=== PATIENT | male | born 1945 | race American Indian/Alaskan Native ===

== ENCOUNTER 2017-07-24 12:47 | Emergency (ER) | payer MEDICARE ==
--- NOTE | 2017-07-24 14:31 | Emergency Department Report ---
HPI <NEREYDA DEAN - Last Filed: 07/24/17 20:16> - HPI HPI: This is a 8-year-old -[place]ian male presents to the emergency department via EMS from home with complaint of alcohol intoxication and a fall causing left shoulder pain. The patient does say that he drinks regularly and says that he "just drank way too much." Because of his level of alcohol consumption , he called EMS himself to be seen. He did not take anything for his left shoulder pain. Utilizing his head or any loss of consciousness. He denies any tobacco or illicit drug use or abuse. He also has a history of hypertension. There is also some medical history for which he takes Plavix but he denies any history of CVA or NV and therefore I do not know what the Plavix is for. Patient says that he lives alone and does not have any family to care for him or any roommates. <MADDY CARLTON - Last Filed: 07/26/17 10:20> - General Chief Complaint: Fall Time Seen by Provider: 07/24/17 14:06 ED Past Medical Hx <NEREYDA DEAN - Last Filed: 07/24/17 20:16> - Past Medical History Previous Medical History?: Yes Hx Hypertension: Yes Additional medical history: HIGH CHOLESTEROL - Surgical History Past Surgical History?: Yes Additional Surgical History: LEFT KNEE SURGERY. biopsy of heart and knee - Social History Smoking Status: Never Smoker Substance Use Type: Alcohol <MADDY CARLTON - Last Filed: 07/26/17 10:20> - Medications Home Medications: Home Medications Medication Instructions Recorded Confirmed Last Taken Type Ibuprofen [Motrin 600 MG tab] 600 mg PO Q8H PRN #40 tablet 02/08/15 Unknown Rx oxyCODONE /ACETAMINOPHEN [Percocet 1 tab PO Q6HR PRN #20 tablet 02/08/15 Unknown Rx 5/325 mg] Famotidine [Pepcid] 20 mg PO BID #30 tablet 04/18/15 Unknown Rx hydrOXYzine HCL [Atarax] 10 mg PO Q6HR #30 tablet 04/18/15 Unknown Rx ED Review of Systems ROS: Stated complaint: ETOH/FALL Other details as noted in HPI <NEREYDA DEAN - Last Filed: 07/24/17 20:16> ROS: Stated complaint: ETOH/FALL Other details as noted in HPI Comment: All other systems reviewed and negative Constitutional: denies: chills, fever Eyes: denies: eye pain, eye discharge, vision change ENT: denies: ear pain, throat pain Respiratory: denies: cough, shortness of breath, wheezing Cardiovascular: denies: chest pain, palpitations Gastrointestinal: denies: abdominal pain, nausea, diarrhea Genitourinary: denies: urgency, dysuria Musculoskeletal: arthralgia. denies: back pain Skin: denies: rash, lesions Neurological: denies: headache, numbness <MADDY CARLTON S - Last Filed: 07/26/17 10:20> Physical Exam - Physical Exam Vital Signs: Vital Signs 07/24/17 07/24/17 07/24/17 15:22 18:31 18:33 Temperature Pulse Rate 108 H Pulse Rate [ 114 H Intra-Procedure ] Pulse Rate [Pre 100 H -Procedure] Respiratory 13 Rate Respiratory 22 Rate [Intra- Procedure] Respiratory 18 Rate [Pre- Procedure] Blood Pressure 163/100 [Intra- Procedure] Blood Pressure 131/77 [Pre-Procedure] Blood Pressure [Right] O2 Sat by Pulse 98 Oximetry [ Intra-Procedure ] O2 Sat by Pulse 100 Oximetry [Pre- Procedure] 07/24/17 18:34 Temperature 98.9 F Pulse Rate 106 H Pulse Rate [ Intra-Procedure ] Pulse Rate [Pre -Procedure] Respiratory 13 Rate Respiratory Rate [Intra- Procedure] Respiratory Rate [Pre- Procedure] Blood Pressure [Intra- Procedure] Blood Pressure [Pre-Procedure] Blood Pressure 162/88 [Right] O2 Sat by Pulse Oximetry [ Intra-Procedure ] O2 Sat by Pulse Oximetry [Pre- Procedure] <NEREYDA DEAN - Last Filed: 07/24/17 20:16> - Physical Exam Physical Exam: GENERAL: The patient is well-developed well-nourished. HENT: Normocephalic. Atraumatic. Patient has moist mucous membranes. EYES: Extraocular motions are intact. Pupils equal reactive to light bilaterally. NECK: Supple. Trachea is midline. CHEST/LUNGS: Clear to auscultation. There is no respiratory distress noted. HEART/CARDIOVASCULAR: Regular. There is no tachycardia. There is no murmur. ABDOMEN: Abdomen is soft, nontender. Patient has normal bowel sounds. There is no abdominal distention. SKIN: Skin is warm and dry. NEURO: The patient appears intoxicated but is awake and oriented, able 3. The patient is cooperative. The patient has no focal neurologic deficits. Patient has some slurred speech but answers questions appropriately. MUSCULOSKELETAL: There is some tenderness palpation to the left shoulder. He holds the left upper extremity against his body and internal rotation. There is a slight deformity to the left shoulder joint concerning for dislocation. Radial pulse +2 over 4 bilaterally. Cap refill less than 2 seconds. <MADDY CARLTON - Last Filed: 07/26/17 10:20> ED Course Vital Signs 07/24/17 07/24/17 07/24/17 15:22 18:31 18:33 Temperature Pulse Rate 108 H Pulse Rate [ 114 H Intra-Procedure ] Pulse Rate [Pre 100 H -Procedure] Respiratory 13 Rate Respiratory 22 Rate [Intra- Procedure] Respiratory 18 Rate [Pre- Procedure] Blood Pressure 163/100 [Intra- Procedure] Blood Pressure 131/77 [Pre-Procedure] Blood Pressure [Right] O2 Sat by Pulse 98 Oximetry [ Intra-Procedure ] O2 Sat by Pulse 100 Oximetry [Pre- Procedure] 07/24/17 18:34 Temperature 98.9 F Pulse Rate 106 H Pulse Rate [ Intra-Procedure ] Pulse Rate [Pre -Procedure] Respiratory 13 Rate Respiratory Rate [Intra- Procedure] Respiratory Rate [Pre- Procedure] Blood Pressure [Intra- Procedure] Blood Pressure [Pre-Procedure] Blood Pressure 162/88 [Right] O2 Sat by Pulse Oximetry [ Intra-Procedure ] O2 Sat by Pulse Oximetry [Pre- Procedure] - Reevaluation(s) Reevaluation #1: 07/24/17 20:18 Care is transferred to the overnight physician, Dr. Santos, to observe patient until clinical sobriety, patient is currently trying to find a ride home, but based on expected metabolism, patient should be clinically sober and ready for discharge by 11:30 PM. However if family or friends to be contacted, and they feel safe and acceptable and okay to take patient home while intoxicated, this would be acceptable as well. <NEREYDA DEAN - Last Filed: 07/24/17 20:16> - Orthopedic Joint Reduction Joint #1 Consent Obtained: emergent situation Time Out Performed: Yes Side: left Joint Reduction Location: shoulder Analgesia: none Shoulder Technique Used (if applicable): scapula manipulation, other Post-Reduction Neuro Exam: intact Post-Reduction Vascular Exam: intact Post Reduction X-Ray Obtained: Yes Post Reduction X-Ray Results: reduced Patient Tolerated Procedure: well Additional Comments: Procedure question my colleague Dr. Whitmore to assist and left shoulder reduction. Patient received propofol for moderate sedation. Upon evaluating the patient, he was still sedated. The left scapula was rotated in the clockwise direction, and I applied lateral and superiorly directed force to the proximal humerus, with a good "clunk", and an obvious reduction in the left shoulder dislocation. Patient moving the bilateral upper extremities without difficulty afterwards, 2+ pulses noted in the bilateral upper and lower extremities, I will defer to Dr. winters management postreduction. Patient tolerated the procedure well. <NEREYDA DEAN - Last Filed: 07/24/17 20:16> - Moderate Sedation Indications: fracture/dislocation redu Preparation: monitoring and evaluation advisor applied, pulse oximeter, capnometry used, supplemental O2 applied, suction/airway equipment at bedside, IV secured Ketamine: IV Ketamine Dose: 100 IV Propofol Dose (mgs): 80 Complications: none Patient Tolerated Procedure: well Additional Comments: The ketamine was given and one attempt was made. The propofol was then given for the second and third attempts before successful reduction. <MADDY CARLTON - Last Filed: 07/26/17 10:20> ED Medical Decision Making - Lab Data Result diagrams: 07/24/17 14:22 07/24/17 14:54 <DIANNENEREYDA - Last Filed: 07/24/17 20:16> - Lab Data Result diagrams: 07/24/17 14:22 07/24/17 14:54 - Radiology Data Radiology results: report reviewed, image reviewed interpreted by me: X-ray of the left shoulder shows a inferior anterior dislocation. There were two post reduction x-rays. The first did not show any successful reduction. The second shows that the humeral head is inside of the glenohumeral joint showing successful reduction. EXAM: CT CERVICAL SPINE WO CON HISTORY: fall TECHNIQUE: CT cervical spine with reconstructions PRIORS: None. FINDINGS: Vertebral bodies demonstrate normal height and alignment. There is multilevel degenerative disc space narrowing most prominent C3-C4 C4-C5 and C5-C6. There is multilevel facet joint arthropathy present. The facet joints demonstrate normal alignment. The spinous processes are intact. Craniocervical junction is unremarkable. C1 and C2 are intact. IMPRESSION: Multilevel degenerative disc disease and facet joint arthropathy No acute traumatic abnormality identified Transcribed By: CARMEN Dictated By: CAMELIA ANDREWS MD Electronically Authenticated By: CAMELIA ANDREWS MD Signed Date/Time: 07/24/17 1309 EXAM: CT HEAD/BRAIN WO CON HISTORY: fall TECHNIQUE: CT head without contrast PRIORS: None. FINDINGS: No acute intra-axial or extra-axial hemorrhage is identified. There is no evidence of midline shift or mass effect. The ventricles and sulci are within normal limits. Huff-white matter differentiation is intact. No acute parenchymal abnormalities seen. Bony calvarium is grossly intact. Visualized portions of the mastoids and paranasal sinuses are unremarkable. IMPRESSION: Negative CT head Transcribed By: CARMEN Dictated By: CAMELIA ANDREWS MD Electronically Authenticated By: CAMELIA ANDREWS MD Signed Date/Time: 07/24/17 1302 - Medical Decision Making Patient who has a history of all dependence presents with a fall and left shoulder pain. Turns out to be a anterior inferior dislocation of the left shoulder. He got conscious sedation and a few attempts were made and eventually there was reduction of the shoulder dislocation. He had some mild hypokalemia that was replaced with potassium chloride. He received IV fluid and banana bag. He had a CT of the head and cervical spine that was negative for any acute process or injury. He was watched in the emergency department for multiple hours until he got to a sober level and then was discharged home with referrals for primary care and her orthopedist. He'll return to the ER with any worsening of symptoms or any acute distress. - Differential Diagnosis alcohol intoxication, shoulder dislocation, fracture, sprain <MADDY CARLTON - Last Filed: 07/26/17 10:20> Critical care attestation.: If time is entered above; I have spent that time in minutes in the direct care of this critically ill patient, excluding procedure time. <NEREYDA DEAN - Last Filed: 07/24/17 20:16> Critical Care Time: No Critical care attestation.: If time is entered above; I have spent that time in minutes in the direct care of this critically ill patient, excluding procedure time. <MADDY CARLTON - Last Filed: 07/26/17 10:20> ED Disposition <NEREYDA DEAN - Last Filed: 07/24/17 20:16> Is pt being admited?: No Time of Disposition: 15:55 <MADDY CARLTON - Last Filed: 07/26/17 10:20> Clinical Impression: Alcohol abuse Alcohol intoxication Qualifiers: Complication of substance-induced condition: uncomplicated Qualified Code(s): F10.920 - Alcohol use, unspecified with intoxication, uncomplicated Fall Qualifiers: Encounter type: initial encounter Qualified Code(s): W19.XXXA - Unspecified fall, initial encounter Dislocation of left shoulder joint Qualifiers: Encounter type: initial encounter Qualified Code(s): S43.005A - Unspecified dislocation of left shoulder joint, initial encounter Disposition: TO HOME OR SELFCARE Condition: Stable Instructions: Shoulder Dislocation (ED), Alcohol Intoxication (ED), Abuse of Alcohol (ED) Additional Instructions: Please try and decrease or quit you're drinking. Stay in the arm sling until follow-up with an orthopedist. I have given you a referral for a local orthopedist, Dr. Kang, to follow up regarding your shoulder pain and dislocation. Return to the emergency Department with any worsening of your symptoms or any acute distress. Referrals: NEREYDA GALICIA MD [Primary Care Provider] - 3-5 Days XAVI KANG MD [Staff Physician] - 3-[address] [facility] [Outside] - 3-5 Days
--- NOTE | 2017-07-24 14:35 | XRay Report ---
LEFT SHOULDER: History: Injury. Anterior, inferior dislocation is identified at the left glenohumeral joint. Mild osteoarthritic changes are suspected at the a.c. joint. No obvious fracture is identified. IMPRESSION: Dislocation.
[2017-07-24] MEDS ORDERED: KETALAR IV ONE (14:43)
[2017-07-24 14:50] LABS: Basophils % (Auto) 0.7 % (0.0-1.8); Eosinophils % (Auto) 0.3 % (0.0-4.3); Hematocrit 39.1 % (35.5-45.6); Hemoglobin 13.3 gm/dl (11.8-15.2); Lymphocytes # (Auto) 1.3 K/mm3 (1.2-5.4); Lymphocytes % (Auto) 21.7 % (13.4-35.0); Mean Corpuscular HGB Conc 34 % (32-34); Mean Corpuscular Hemoglobin 29 pg (28-32); Mean Corpuscular Volume 86 fl (84-94); Monocytes # (Auto) 0.3 K/mm3 (0.0-0.8); Monocytes % (Auto) 5.3 % (0.0-7.3); Platelet Count 139 K/mm3 (140-440); Red Blood Count 4.55 M/mm3 (3.65-5.03); Red Cell Distribution Width 15.8 % (13.2-15.2)
[2017-07-24] MEDS ORDERED: NACL 0.9% 1000 ML 1,000 ML IV ONE (14:59)
[2017-07-24] MEDS ORDERED: VITAMIN B-1 100 MG, FOLVITE 1 MG, INFUVITE 10 ML in NACL 0.9% 1000 ML 1,000 ML IV ONE (14:59)
[2017-07-24 15:27] LABS: Alanine Aminotransferase 57 units/L (7-56); BUN/Creatinine Ratio 22; Blood Urea Nitrogen 13 mg/dL (9-20); Calcium 8.7 mg/dL (8.4-10.2); Hemolysis Index 24
[2017-07-24] MEDS ORDERED: DIPRIVAN 10 MG/ML IV ONE ×3 (15:29→15:44)
[2017-07-24] MEDS ORDERED: K-DUR PO ONE (16:00)
--- NOTE | 2017-07-24 17:05 | Cat Scan Report ---
FINAL REPORT EXAM: CT HEAD/BRAIN WO CON HISTORY: fall TECHNIQUE: CT head without contrast PRIORS: None. FINDINGS: No acute intra-axial or extra-axial hemorrhage is identified. There is no evidence of midline shift or mass effect. The ventricles and sulci are within normal limits. Huff-white matter differentiation is intact. No acute parenchymal abnormalities seen. Bony calvarium is grossly intact. Visualized portions of the mastoids and paranasal sinuses are unremarkable. IMPRESSION: Negative CT head
--- NOTE | 2017-07-24 17:12 | Cat Scan Report ---
FINAL REPORT EXAM: CT CERVICAL SPINE WO CON HISTORY: fall TECHNIQUE: CT cervical spine with reconstructions PRIORS: None. FINDINGS: Vertebral bodies demonstrate normal height and alignment. There is multilevel degenerative disc space narrowing most prominent C3-C4 C4-C5 and C5-C6. There is multilevel facet joint arthropathy present. The facet joints demonstrate normal alignment. The spinous processes are intact. Craniocervical junction is unremarkable. C1 and C2 are intact. IMPRESSION: Multilevel degenerative disc disease and facet joint arthropathy No acute traumatic abnormality identified
--- NOTE | 2017-07-24 17:27 | XRay Report ---
FINAL REPORT EXAM: XR SHOULDER 1V LT HISTORY: post reduction TECHNIQUE: Single AP view of the shoulder PRIORS: Correlated with today's earlier exam FINDINGS: There is been complete reduction the previously described shoulder dislocation Noted are degenerative changes with narrowing of the subacromial joint space mild hypertrophic bony change with inferior acromial osteophyte. Findings likely reflect underlying rotator cuff pathology IMPRESSION: Complete reduction of anterior dislocation Findings suggestive of rotator cuff pathology
[2017-07-24] MEDS ORDERED: MAGNESIUM SULFATE 2GM/50ML 2 GM/50 ML BAG IV ONE (18:59)
[2017-07-24 21:16] VITALS: BP 156/84
--- NOTE | 2017-07-25 00:22 | XRay Report ---
FINAL REPORT EXAM: XR SHOULDER 1V LT HISTORY: post reduction COMPARISON: July 24, 2017. FINDINGS: Single AP view of the left shoulder obtained. Persistent inferior anterior dislocation of the humeral head relative to the glenoid rim. Prominent osteophyte of the AC joint. IMPRESSION: Persistent anterior inferior dislocation of the humeral head.
== END 2017-07-24 21:31 | disposition home or self-care (01) ==
LOC: ED 12:47
DX: S43.005A Unspecified dislocation of left shoulder joint, initial encounter (principal); F10.129 Alcohol abuse with intoxication, unspecified; I10 Essential (primary) hypertension; E78.00 Pure hypercholesterolemia, unspecified; W18.30XA Fall on same level, unspecified, initial encounter; Y93.89 Activity, other specified; Y92.89 Other specified places as the place of occurrence of the external cause; Y99.8 Other external cause status
CPT/HCPCS: 23650; 36415; 70450; 72125; 73020; 73030; 80053; 83735; 85025; 96365; 96366; 96368; 99285; G0480; J2704; J3411; J3475; J7030; 80320

== ENCOUNTER 2022-02-14 14:01 | Inpatient (IN) | payer MEDICARE ==
--- NOTE | 2022-02-14 16:52 | Emergency Department Report ---
ED Shortness of Breath HPI - General Chief Complaint: Dyspnea/Respdistress Stated Complaint: SHORTNESS OF BREATH Time Seen by Provider: 02/14/22 16:18 Source: EMS Mode of arrival: Stretcher Limitations: Physical Limitation - History of Present Illness Initial Comments: 76-year-old male with history of hypercholesterolemia and stents with previous history of knee surgery presents to the emergency department complaining of dyspnea on exertion and orthopnea since last night, becoming worse today. Patient also reports associated nausea and vomiting. Patient denies cough, chest pain, fever, chills, or bilateral lower extremity swelling or pain. Rosa ent reports similar in the past, but states that it resolved quickly, and was not seen for the symptoms. Patient is on oxygen, here, which he states helps with his symptoms. Exertion makes his symptoms worse. Laying flat makes his symptoms worse as well. Complaint: shortness of breath - Related Data Home Medications Medication Instructions Recorded Confirmed Last Taken AtorvaSTATin [Lipitor] 20 mg PO QHS 02/14/22 02/14/22 Unknown Bimatoprost [Lumigan 0.01%] 1 drop OP QPM 02/14/22 02/14/22 Unknown Levothyroxine [Synthroid] 25 mcg PO QAM 02/14/22 02/14/22 1 Day Ago ~02/13/22 0.4 mg Losartan [Cozaar] 25 mg PO QDAY 02/14/22 02/14/22 1 Day Ago ~02/13/22 Tamsulosin 0.4 mg DAILY 02/14/22 02/14/22 Unknown Previous Rx's Medication Instructions Recorded Last Taken Type Ibuprofen [Motrin 600 MG tab] 600 mg PO Q8H PRN #40 tablet 02/08/15 Unknown Rx oxyCODONE /ACETAMINOPHEN [Percocet 1 tab PO Q6HR PRN #20 tablet 02/08/15 Unknown Rx 5/325 mg] Famotidine [Pepcid] 20 mg PO BID #30 tablet 04/18/15 Unknown Rx hydrOXYzine HCL [Atarax] 10 mg PO Q6HR #30 tablet 04/18/15 Unknown Rx Allergies Allergy/AdvReac Type Severity Reaction Status Date / Time No Known Allergies Allergy Verified 02/08/15 10:07 ED Review of Systems ROS: Stated complaint: SHORTNESS OF BREATH Other details as noted in HPI Comment: All other systems reviewed and negative Constitutional: see HPI Eyes: denies: eye pain, eye discharge, vision change ENT: denies: ear pain, throat pain Respiratory: orthopnea, shortness of breath, SOB with exertion, SOB at rest. denies: cough, stridor, wheezing Cardiovascular: dyspnea on exertion. denies: chest pain, edema, paroxysmal nocturnal dyspnea Endocrine: no symptoms reported Gastrointestinal: nausea, vomiting. denies: abdominal pain, diarrhea, constipation Genitourinary: denies: urgency, dysuria Musculoskeletal: denies: back pain, joint swelling, arthralgia Skin: denies: rash, lesions Neurological: denies: headache, weakness, paresthesias Psychiatric: denies: anxiety, depression Hematological/Lymphatic: denies: easy bleeding, easy bruising ED Past Medical Hx - Past Medical History Previous Medical History?: Yes Hx Hypertension: Yes Hx Deep Vein Thrombosis: No Hx Pulmonary Embolism: No Additional medical history: HIGH CHOLESTEROL - Surgical History Hx Coronary Stent: Yes Additional Surgical History: LEFT KNEE SURGERY. biopsy of heart and knee - Social History Smoking Status: Never Smoker Substance Use Type: Alcohol - Medications Home Medications: Home Medications Medication Instructions Recorded Confirmed Last Taken Type Ibuprofen [Motrin 600 MG tab] 600 mg PO Q8H PRN #40 tablet 02/08/15 02/14/22 Unknown Rx oxyCODONE /ACETAMINOPHEN [Percocet 1 tab PO Q6HR PRN #20 tablet 02/08/15 02/14/22 Unknown Rx 5/325 mg] Famotidine [Pepcid] 20 mg PO BID #30 tablet 04/18/15 02/14/22 Unknown Rx hydrOXYzine HCL [Atarax] 10 mg PO Q6HR #30 tablet 04/18/15 02/14/22 Unknown Rx AtorvaSTATin [Lipitor] 20 mg PO QHS 02/14/22 02/14/22 Unknown History Bimatoprost [Lumigan 0.01%] 1 drop OP QPM 02/14/22 02/14/22 Unknown History Levothyroxine [Synthroid] 25 mcg PO QAM 02/14/22 02/14/22 1 Day Ago History ~02/13/22 0.4 mg Losartan [Cozaar] 25 mg PO QDAY 02/14/22 02/14/22 1 Day Ago History ~02/13/22 Tamsulosin 0.4 mg DAILY 02/14/22 02/14/22 Unknown History ED Physical Exam - General Limitations: Physical Limitation General appearance: alert, in no apparent distress - Head Head exam: Present: atraumatic, normocephalic - Eye Eye exam: Present: normal appearance - Neck Neck exam: Present: normal inspection - Respiratory Respiratory exam: Present: normal lung sounds bilaterally, other (tachypnea). Absent: respiratory distress, wheezes, rales, rhonchi, stridor, decreased breath sounds, prolonged expiratory - Cardiovascular Cardiovascular Exam: Present: normal rhythm, tachycardia. Absent: irregular rhythm - GI/Abdominal GI/Abdominal exam: Present: soft, normal bowel sounds - Rectal Rectal exam: Present: deferred - Extremities Exam Extremities exam: Present: normal inspection. Absent: joint swelling, calf tenderness - Neurological Exam Neurological exam: Present: alert, oriented X3 - Psychiatric Psychiatric exam: Present: normal affect, normal mood - Skin Skin exam: Present: warm, dry, intact, normal color. Absent: rash ED Course Vital Signs 02/14/22 02/14/22 02/14/22 14:52 15:59 16:00 Temperature 98.1 F Pulse Rate 102 H 96 H Respiratory 16 19 24 Rate Blood Pressure 163/75 Blood Pressure 118/70 [Left] O2 Sat by Pulse 96 97 Oximetry 02/14/22 02/14/22 02/14/22 16:15 16:31 16:45 Temperature Pulse Rate 95 H 110 H 97 H Respiratory 19 39 H 22 Rate Blood Pressure 163/75 163/75 155/78 Blood Pressure [Left] O2 Sat by Pulse 100 98 99 Oximetry 02/14/22 02/14/22 02/14/22 16:53 17:01 17:15 Temperature Pulse Rate 96 H 95 H Respiratory 24 19 Rate Blood Pressure 155/78 155/78 Blood Pressure [Left] O2 Sat by Pulse 98 100 99 Oximetry 02/14/22 02/14/22 02/14/22 21:15 21:28 22:37 Temperature Pulse Rate 92 H 77 Respiratory 100 H 15 Rate Blood Pressure Blood Pressure 173/84 173/82 [Left] O2 Sat by Pulse 100 100 Oximetry ED Medical Decision Making - Lab Data Result diagrams: 02/14/22 16:53 02/14/22 16:53 - Differential Diagnosis ACS, pulmonary embolism, pneumonia, COVID-19, CHF Critical care attestation.: If time is entered above; I have spent that time in minutes in the direct care of this critically ill patient, excluding procedure time. ED Disposition Clinical Impression: Dyspnea Qualifiers: Dyspnea type: shortness of breath Qualified Code(s): R06.02 - Shortness of breath; R06.00 - Dyspnea, unspecified; R06.01 - Orthopnea Nausea & vomiting Qualifiers: Vomiting type: unspecified Qualified Code(s): R11.2 - Nausea with vomiting, unspecified Disposition: 09 ADMITTED INPATIENT Is pt being admited?: Yes Does the pt Need Aspirin: No Condition: Stable Referrals: PRIMARY CARE, [Primary Care Provider] - 3-5 Days
--- NOTE | 2022-02-14 17:18 | XRay Report ---
CHEST 1 VIEW 02/14/2022 5:01 PM INDICATION / CLINICAL INFORMATION: Dyspnea. COMPARISON: 03/10/13 FINDINGS: SUPPORT DEVICES: None. HEART / MEDIASTINUM: No significant abnormality. LUNGS / PLEURA: No acute airspace disease. Hyperinflated lungs with flattening of hemidiaphragms and mild bibasilar interstitial prominence, unchanged. No pneumothorax. ADDITIONAL FINDINGS: No significant additional findings. IMPRESSION: 1. Hyperinflated lungs but no acute airspace disease. Signer Name: Sal Ricardo MD Signed: 02/14/2022 5:14 PM Workstation Name: [email or web address]
[2022-02-14 17:35] LABS: Basophils % (Auto) 0.4 % (0.0-1.8); Hematocrit 44.7 % (35.5-45.6); Hemoglobin 15.2 gm/dl (11.8-15.2); Lymphocytes # (Auto) 1.3 K/mm3 (1.2-5.4); Lymphocytes % (Auto) 12.2 % (13.4-35.0); Mean Corpuscular HGB Conc 34 % (32-34); Mean Corpuscular Volume 85 fl (84-94); Monocytes # (Auto) 0.3 K/mm3 (0.0-0.8); Monocytes % (Auto) 3.1 % (0.0-7.3); Platelet Count 222 K/mm3 (140-440); Red Blood Count 5.25 M/mm3 (3.65-5.03); Red Cell Distribution Width 14.5 % (13.2-15.2)
[2022-02-14 17:49] LABS: Alanine Aminotransferase 17 units/L (7-56); Albumin 4.4 g/dL (3.9-5); BUN/Creatinine Ratio 22; Blood Urea Nitrogen 20 mg/dL (9-20); Calcium 9.4 mg/dL (8.4-10.2); Hemolysis Index 19
[2022-02-14 18:07] LABS: INR 1.09 (0.87-1.13); Partial Thromboplastin Time 25.8 Sec. (24.2-36.6)
[2022-02-14] MEDS ORDERED: ONDANSETRON 4 MG/2 ML INJ IV ONE ×2 (18:32→23:11)
--- NOTE | 2022-02-14 20:19 | Cat Scan Report ---
CT angio chest INDICATION / CLINICAL INFORMATION: Shortness of breath, elevated D-dimer, rule out pu 100ml of [id number]. TECHNIQUE: Axial CT images were obtained through the chest after injection of IV contrast. 3 plane MIP and/or 3D reconstructions were produced. All CT scans at this location are performed using CT dose reduction f or ALARA by means of automated exposure control. COMPARISON: None available. FINDINGS: PULMONARY ARTERIES: No central pulmonary artery emboli in the main, right, left pulmonary arteries. R espiratory motion degrades image quality obscuring the segmental and subsegmental pulmonary arteries. Central pulmonary arteries are enlarged suggesting pulmonary arterial hypertension. HEART: Large quantity of multivessel coronary atherosclerotic calcifications. MEDIASTINUM / ROYCE: No significant abnormality. LUNGS: Dependent bibasilar parenchymal bands and ground glass opacities. No pleural effusion. No pne umothorax. ADDITIONAL FINDINGS: None. UPPER ABDOMEN: Small sliding-type hiatal hernia. SKELETAL STRUCTURES: No significant osseous abnormality. IMPRESSION: 1. No CT evidence for central pulmonary embolism. Distal pulmonary arteries are not well evaluated du e to respiratory motion. 2. Mild bibasilar atelectasis. No definite airspace disease. Signer Name: Juan Chavarria MD Signed: 02/14/2022 8:15 PM Workstation Name: [id number]
[2022-02-14 22:37] LABS: ABG HCO3 20.4 mmol/L (20.0-26.0); ABG Methemoglobin 0.6 % (0.0-1.5); ABG PCO2 31.9 mm Hg; ABG PH 7.423 pH Units (7.350-7.450); ABG PO2 78.8 mm Hg (80.0-90.0)
[2022-02-14] MEDS ORDERED: ONDANSETRON 4 MG/2 ML INJ IV PRN (23:54)
[2022-02-14] MEDS ORDERED: MORPHINE 4 MG/1 ML INJ IV PRN (23:54)
[2022-02-14] MEDS ORDERED: ACETAMINOPHEN 325 MG TAB PO PRN (23:54)
[2022-02-14] MEDS ORDERED: PROMETHAZINE 25 MG RECT SUPP PR PRN (23:54)
[2022-02-14] MEDS ORDERED: MORPHINE 2 MG/1 ML INJ IV PRN (23:54)
[2022-02-14] MEDS ORDERED: ALBUTEROL 2.5 MG/3 ML NEBU IH PRN (23:54)
[2022-02-15] MEDS ORDERED: hydrALAZINE 20 MG/1 ML INJ IV PRN (00:02)
--- NOTE | 2022-02-15 00:02 | History and Physical Report ---
History of Present Illness Date of examination: 02/14/22 Date of admission: 02/14/22 Chief complaint: Shortness of breath Vomiting History of present illness: 76-year-old male with history of hypercholesterolemia and stents with previous history of knee surgery presents to the emergency department complaining of dyspnea on exertion and orthopnea since last night, becoming worse today. Patient also reports associated nausea and vomiting. Patient denies cough, c hest pain, fever, chills, or bilateral lower extremity swelling or pain. Patient reports similar in the past, but states that it resolved quickly, and was not seen for the symptoms. Patient is on oxygen, here, which he states helps with his symptoms. Exertion makes his symptoms worse. In the emergency room CT scan of the chest showed no PE. ABG shows pH 7.4 2 3. PCO2 31.9. PO2 78.8. O2 sat 97.0. Past History Past Medical History: hypertension, hyperlipidemia Past Surgical History: Other (LEFT KNEE SURGERY. biopsy of heart and knee) Social history: no significant social history, alcohol abuse Family history: hypertension Medications and Allergies Allergies Allergy/AdvReac Type Severity Reaction Status Date / Time No Known Allergies Allergy Verified 02/08/15 10:07 Home Medications Medication Instructions Recorded Confirmed Last Taken Type Ibuprofen [Motrin 600 MG tab] 600 mg PO Q8H PRN #40 tablet 02/08/15 02/14/22 Unknown Rx oxyCODONE /ACETAMINOPHEN [Percocet 1 tab PO Q6HR PRN #20 tablet 02/08/15 02/14/22 Unknown Rx 5/325 mg] Famotidine [Pepcid] 20 mg PO BID #30 tablet 04/18/15 02/14/22 Unknown Rx hydrOXYzine HCL [Atarax] 10 mg PO Q6HR #30 tablet 04/18/15 02/14/22 Unknown Rx AtorvaSTATin [Lipitor] 20 mg PO QHS 02/14/22 02/14/22 Unknown History Bimatoprost [Lumigan 0.01%] 1 drop OP QPM 02/14/22 02/14/22 Unknown History Levothyroxine [Synthroid] 25 mcg PO QAM 02/14/22 02/14/22 1 Day Ago History ~02/13/22 0.4 mg Losartan [Cozaar] 25 mg PO QDAY 02/14/22 02/14/22 1 Day Ago History ~02/13/22 Tamsulosin 0.4 mg DAILY 02/14/22 02/14/22 Unknown History Active Meds: Active Medications Acetaminophen (Acetaminophen 325 Mg Tab) 650 mg PO Q4H PRN PRN Reason: Pain MILD(1-3)/Fever >100.5/TIERNEY Albuterol/Ipratropium (Ipratropium/Albuterol Sulfate 3 Ml Ampul.Neb) 1 ampul IH Q6HRT JESSEE Ondansetron HCl (Ondansetron 4 Mg/2 Ml Inj) 4 mg IV Q8H PRN PRN Reason: Nausea And Vomiting Sodium Chloride (Sodium Chloride 0.9% 10 Ml Flush Syringe) 10 ml IV BID JESSEE Sodium Chloride (Sodium Chloride 0.9% 10 Ml Flush Syringe) 10 ml IV PRN PRN PRN Reason: LINE FLUSH Review of Systems All systems: negative Cardiovascular: shortness of breath, dyspnea on exertion Respiratory: shortness of breath, dyspnea on exertion Gastrointestinal: nausea, vomiting Exam - Constitutional Vitals: Temp Pulse Resp BP Pulse Ox 98.1 F 77 15 173/82 100 02/14/22 14:52 02/14/22 22:37 02/14/22 22:37 02/14/22 22:37 02/14/22 22:37 General appearance: Present: no acute distress, well-nourished - EENT Eyes: Present: PERRL ENT: hearing intact, clear oral mucosa - Neck Neck: Present: supple, normal ROM - Respiratory Respiratory effort: normal Respiratory: bilateral: CTA - Cardiovascular Heart Sounds: Present: S1 & S2. Absent: rub, click - Extremities Extremities: pulses symmetrical, No edema Peripheral Pulses: within normal limits - Abdominal General gastrointestinal: Present: soft, non-tender, non-distended, normal bowel sounds Male genitourinary: Present: normal - Integumentary Integumentary: Present: clear, warm, dry - Musculoskeletal Musculoskeletal: gait normal, strength equal bilaterally - Psychiatric Psychiatric: appropriate mood/affect, intact judgment & insight - Neurologic Neurologic: CNII-XII intact, moves all extremities HEART Score - HEART Score Troponin: Troponin T < 0.010 ng/mL (0.00-0.029) 02/14/22 16:53 Results - Labs CBC & Chem 7: 02/14/22 16:53 02/14/22 16:53 Labs: Laboratory Last Values WBC 10.3 K/mm3 (4.5-11.0) 02/14/22 16:53 RBC 5.25 M/mm3 (3.65-5.03) H 02/14/22 16:53 Hgb 15.2 gm/dl (11.8-15.2) 02/14/22 16:53 Hct 44.7 % (35.5-45.6) 02/14/22 16:53 MCV 85 fl (84-94) 02/14/22 16:53 MCH 29 pg (28-32) 02/14/22 16:53 MCHC 34 % (32-34) 02/14/22 16:53 RDW 14.5 % (13.2-15.2) 02/14/22 16:53 Plt Count 222 K/mm3 (140-440) 02/14/22 16:53 Lymph % (Auto) 12.2 % (13.4-35.0) L 02/14/22 16:53 [place] % (Auto) 3.1 % (0.0-7.3) 02/14/22 16:53 Eos % (Auto) 0.0 % (0.0-4.3) 02/14/22 16:53 Baso % (Auto) 0.4 % (0.0-1.8) 02/14/22 16:53 Lymph # (Auto) 1.3 K/mm3 (1.2-5.4) 02/14/22 16:53 [place] # (Auto) 0.3 K/mm3 (0.0-0.8) 02/14/22 16:53 Eos # (Auto) 0.0 K/mm3 (0.0-0.4) 02/14/22 16:53 Baso # (Auto) 0.0 K/mm3 (0.0-0.1) 02/14/22 16:53 Seg Neutrophils % 84.3 % (40.0-70.0) H 02/14/22 16:53 Seg Neutrophils # 8.7 K/mm3 (1.8-7.7) H 02/14/22 16:53 PT 15.3 Sec. (12.2-14.9) H 02/14/22 16:53 INR 1.09 (0.87-1.13) 02/14/22 16:53 APTT 25.8 Sec. (24.2-36.6) 02/14/22 16:53 D-Dimer 908.06 ng/mlDDU (0-234) H 02/14/22 16:53 ABG pH 7.423 pH Units (7.350-7.450) 02/14/22 22:30 ABG pCO2 31.9 mm Hg 02/14/22 22:30 ABG pO2 78.8 mm Hg (80.0-90.0) L 02/14/22 22:30 ABG HCO3 20.4 mmol/L (20.0-26.0) 02/14/22 22:30 ABG O2 Saturation 97.0 % (95.0-99.0) 02/14/22 22:30 ABG O2 Content 20.2 (0.0-44) 02/14/22 22:30 ABG Base Excess -3.0 mmol/L (-2.0-3.0) L 02/14/22 22:30 ABG Hemoglobin 15.2 gm/dl (14.0-18.0) 02/14/22 22:30 ABG Carboxyhemoglobin 1.7 % (0.0-5.0) 02/14/22 22:30 ABG Methemoglobin 0.6 % (0.0-1.5) 02/14/22 22:30 Oxyhemoglobin 94.8 % (95.0-99.0) L 02/14/22 22:30 FiO2 21 % 02/14/22 22:30 Sodium 147 mmol/L (137-145) H 02/14/22 16:53 Potassium 4.5 mmol/L (3.6-5.0) 02/14/22 16:53 Chloride 103.3 mmol/L (98-107) 02/14/22 16:53 Carbon Dioxide 16 mmol/L (22-30) L 02/14/22 16:53 Anion Gap 32 mmol/L 02/14/22 16:53 BUN 20 mg/dL (9-20) 02/14/22 16:53 Creatinine 0.9 mg/dL (0.8-1.3) 02/14/22 16:53 Estimated GFR > 60 ml/min 02/14/22 16:53 BUN/Creatinine Ratio 22 % 02/14/22 16:53 Glucose 88 mg/dL (75-100) 02/14/22 16:53 Calcium 9.4 mg/dL (8.4-10.2) 02/14/22 16:53 Total Bilirubin 0.80 mg/dL (0.1-1.2) 02/14/22 16:53 AST 30 units/L (5-40) 02/14/22 16:53 ALT 17 units/L (7-56) 02/14/22 16:53 Alkaline Phosphatase 140 units/L (35-129) H 02/14/22 16:53 Troponin T < 0.010 ng/mL (0.00-0.029) 02/14/22 16:53 Total Protein 9.0 g/dL (6.3-8.2) H 02/14/22 16:53 Albumin 4.4 g/dL (3.9-5) 02/14/22 16:53 Albumin/Globulin Ratio 1.0 % 02/14/22 16:53 - Imaging and Cardiology Chest x-ray: report reviewed CT scan - chest: report reviewed Assessment and Plan VTE prophylaxis?: Chemical Plan of care discussed with patient/family: Yes - Patient Problems (1) Dyspnea Current Visit: Yes Status: Acute Plan to address problem: Admit the patient to the medical telemetry. Oxygen by nasal cannula 3 L/min. DuoNeb by nebulizer every 4 hours. Albuterol via nebulizer every 4 hours as needed. (2) Nausea & vomiting Current Visit: Yes Status: Acute Plan to address problem: Pepcid 20 mg p.o. twice daily. Zofran 4 mg every 6 hours as needed. Phenergan every 6 hours as needed. (3) Hypertension Current Visit: Yes Status: Acute Plan to address problem: Hydralazine 10 mg IV every 6 hours as needed. Losartan 25 mg p.o. daily .we continue the home medication (4) Hyperlipidemia Current Visit: Yes Status: Acute Plan to address problem: Lipitor 20 mg p.o. nightly. We recheck the lipid panel (5) DVT prophylaxis Current Visit: Yes Status: Acute Plan to address problem: Heparin 5000 units subcu every 12 hours for DVT prophylaxis. Pepcid 20 mg p.o. twice daily for GI prophylaxis. Patient is a full code
[2022-02-15] MEDS: IPRATROPIUM/ALBUTEROL SULFATE 3 ML AMPUL.NEB IH SCH ×4 (02:24→21:33)
[2022-02-15] MEDS: LEVOTHYROXINE 25 MCG TAB PO SCH (06:07)
[2022-02-15 06:33] LABS: Basophils % (Auto) 0.4 % (0.0-1.8); Hematocrit 45.2 % (35.5-45.6); Hemoglobin 15.2 gm/dl (11.8-15.2); Lymphocytes # (Auto) 1.5 K/mm3 (1.2-5.4); Lymphocytes % (Auto) 15.8 % (13.4-35.0); Mean Corpuscular HGB Conc 34 % (32-34); Mean Corpuscular Volume 85 fl (84-94); Monocytes # (Auto) 0.9 K/mm3 (0.0-0.8); Monocytes % (Auto) 9.8 % (0.0-7.3); Platelet Count 225 K/mm3 (140-440); Red Blood Count 5.33 M/mm3 (3.65-5.03); Red Cell Distribution Width 14.5 % (13.2-15.2)
[2022-02-15 07:20] LABS: BUN/Creatinine Ratio 20; Blood Urea Nitrogen 24 mg/dL (9-20); Calcium 9.7 mg/dL (8.4-10.2); Hemolysis Index 8
[2022-02-15] MEDS: ENOXAPARIN 40 MG/0.4 ML INJ SUB-Q SCH (09:26)
[2022-02-15] MEDS: FAMOTIDINE 20 MG TAB PO SCH ×2 (09:27→22:52)
[2022-02-15] MEDS: LOSARTAN 25 MG TAB PO SCH (09:27)
[2022-02-15] MEDS: TAMSULOSIN 0.4 MG CAP PO SCH (09:27)
--- NOTE | 2022-02-15 09:41 | Electrocardiograph Report ---
[facility] Test Date: 2022-02-14 Test Time: 17:50:20 Pat Name: KANDIS BUSBY Department: Room: A465 Gender: M Mathematician: TIKA : 1945 Requested By: ANYA STEVENS Order Number: [id number] Reading MD: Alvin Carmona Measurements Intervals [place] Rate: 101 P: 59 [place]: 179 QRS: 27 QRSD: 83 T: 32 QT: 325 QTc: 421 Interpretive Statements Sinus tachycardia Multiple ventricular premature complexes No previous ECG available for comparison Electronically Signed On 02-15-2022 9:41:06 EDT by Alvin Carmona
[2022-02-15] MEDS ORDERED: HEPARIN 5,000 UNIT/1 ML VIAL SUB-Q SCH (10:00)
[2022-02-15] MEDS ORDERED: SODIUM POLYSTYRENE 15 GM/60 ML ORAL LIQD PO ONE (14:58)
[2022-02-15] MEDS ORDERED: AZITHROMYCIN/NS 500 MG/250 ML 500 MG/250 ML BAG IV SCH (15:00)
[2022-02-15] MEDS ORDERED: cefTRIAXone/NS 1 GM/50 ML 1 GM/50 ML BAG IV SCH (15:00)
--- NOTE | 2022-02-15 15:05 | Progress Note ---
Assessment and Plan Assessment and plan: #Acute hypoxic respiratory failure - etiology: Possibly infectious. Unremarkable coronavirus PCR. - baseline oxygen requirements: Room air - supplemental oxygen: 2 L nasal cannula - Continue protocol: continue pulse oximetry, wean oxygen as tolerated, ordered incentive spirometry and educated patient on how to use it and its importance. - Starting IV methylprednisolone 60 mg every 8 hours. - TTE (02/15/2022) revealing EF 55% with normal-sized LV, normal LV systolic function, mild diastolic dysfunction, normal-sized RV, normal RV systolic function, LA, dilated RA, atrial septal aneurysm is present, RVSP is 41 mmHg. Unremarkable proBNP. Discontinuing Lasix. -Starting azithromycin 500 mg daily and Rocephin 1 g every 24 hours. Pending procalcitonin. - continue to monitor #Nausea and vomiting Continue antiemetics as needed #Hypertension #Hyperlipidemia - home medications: Losartan 25 mg daily and atorvastatin 20 mg daily - current medications: Losartan 25 mg daily and atorvastatin 20 mg daily - SBP goal <160 and DBP goal <90 while inpatient - continue to monitor #Hypothyroidism Continue home levothyroxine 25 mcg daily #BPH Continue home Flomax 0.4 mg daily #Advanced care planning -Disease education conducted, care plan discussed, diagnoses discussed, prognosis discussed, and patient acknowledges understanding with care plan -Time: +30 min Disposition Plan: Continue medical management Total Time Spent with Patient (Minutes): 45 minutes History Interval history: No acute events overnight. Hospitalist Physical - Constitutional Vitals: Temp Pulse Resp BP Pulse Ox 98.2 F 83 19 108/66 100 02/15/22 12:13 02/15/22 14:00 02/15/22 14:00 02/15/22 12:21 02/15/22 12:13 General appearance: Present: no acute distress, well-nourished - EENT Eyes: Present: PERRL, EOM intact ENT: hearing intact, clear oral mucosa, dentition normal - Neck Neck: Present: supple, normal ROM - Respiratory Respiratory effort: normal Respiratory: bilateral: diminished (2 L nasal cannula) - Cardiovascular Rhythm: regular Heart Sounds: Present: S1 & S2 - Extremities Extremities: no ischemia, pulses intact, pulses symmetrical, No edema, normal temperature, normal color, Full ROM Peripheral Pulses: within normal limits - Abdominal General gastrointestinal: soft, non-tender, non-distended, normal bowel sounds - Integumentary Integumentary: Present: clear, warm, dry - Psychiatric Psychiatric: appropriate mood/affect, intact judgment & insight, memory intact, cooperative - Neurologic Neurologic: CNII-XII intact, moves all extremities - Allied Health Allied health notes reviewed: nursing HEART Score - HEART Score Troponin: Troponin T < 0.010 ng/mL (0.00-0.029) 02/14/22 16:53 Results - Labs CBC & Chem 7: 02/15/22 05:51 02/15/22 05:51 Labs: Laboratory Last Values WBC 9.4 K/mm3 (4.5-11.0) 02/15/22 05:51 RBC 5.33 M/mm3 (3.65-5.03) H 02/15/22 05:51 Hgb 15.2 gm/dl (11.8-15.2) 02/15/22 05:51 Hct 45.2 % (35.5-45.6) 02/15/22 05:51 MCV 85 fl (84-94) 02/15/22 05:51 MCH 29 pg (28-32) 02/15/22 05:51 MCHC 34 % (32-34) 02/15/22 05:51 RDW 14.5 % (13.2-15.2) 02/15/22 05:51 Plt Count 225 K/mm3 (140-440) 02/15/22 05:51 Lymph % (Auto) 15.8 % (13.4-35.0) 02/15/22 05:51 [place] % (Auto) 9.8 % (0.0-7.3) H 02/15/22 05:51 Eos % (Auto) 0.0 % (0.0-4.3) 02/15/22 05:51 Baso % (Auto) 0.4 % (0.0-1.8) 02/15/22 05:51 Lymph # (Auto) 1.5 K/mm3 (1.2-5.4) 02/15/22 05:51 [place] # (Auto) 0.9 K/mm3 (0.0-0.8) H 02/15/22 05:51 Eos # (Auto) 0.0 K/mm3 (0.0-0.4) 02/15/22 05:51 Baso # (Auto) 0.0 K/mm3 (0.0-0.1) 02/15/22 05:51 Seg Neutrophils % 74.0 % (40.0-70.0) H 02/15/22 05:51 Seg Neutrophils # 7.0 K/mm3 (1.8-7.7) 02/15/22 05:51 PT 15.3 Sec. (12.2-14.9) H 02/14/22 16:53 INR 1.09 (0.87-1.13) 02/14/22 16:53 APTT 25.8 Sec. (24.2-36.6) 02/14/22 16:53 D-Dimer 908.06 ng/mlDDU (0-234) H 02/14/22 16:53 ABG pH 7.423 pH Units (7.350-7.450) 02/14/22 22:30 ABG pCO2 31.9 mm Hg 02/14/22 22:30 ABG pO2 78.8 mm Hg (80.0-90.0) L 02/14/22 22:30 ABG HCO3 20.4 mmol/L (20.0-26.0) 02/14/22 22:30 ABG O2 Saturation 97.0 % (95.0-99.0) 02/14/22 22:30 ABG O2 Content 20.2 (0.0-44) 02/14/22 22:30 ABG Base Excess -3.0 mmol/L (-2.0-3.0) L 02/14/22 22:30 ABG Hemoglobin 15.2 gm/dl (14.0-18.0) 02/14/22 22:30 ABG Carboxyhemoglobin 1.7 % (0.0-5.0) 02/14/22 22:30 ABG Methemoglobin 0.6 % (0.0-1.5) 02/14/22 22:30 Oxyhemoglobin 94.8 % (95.0-99.0) L 02/14/22 22:30 FiO2 21 % 02/14/22 22:30 Sodium 149 mmol/L (137-145) H 02/15/22 05:51 Potassium 5.2 mmol/L (3.6-5.0) H 02/15/22 05:51 Chloride 106.5 mmol/L (98-107) 02/15/22 05:51 Carbon Dioxide 24 mmol/L (22-30) D 02/15/22 05:51 Anion Gap 24 mmol/L 02/15/22 05:51 BUN 24 mg/dL (9-20) H 02/15/22 05:51 Creatinine 1.2 mg/dL (0.8-1.3) 02/15/22 05:51 Estimated GFR > 60 ml/min 02/15/22 05:51 BUN/Creatinine Ratio 20 % 02/15/22 05:51 Glucose 131 mg/dL (75-100) H 02/15/22 05:51 Calcium 9.7 mg/dL (8.4-10.2) 02/15/22 05:51 Total Bilirubin 0.80 mg/dL (0.1-1.2) 02/14/22 16:53 AST 30 units/L (5-40) 02/14/22 16:53 ALT 17 units/L (7-56) 02/14/22 16:53 Alkaline Phosphatase 140 units/L (35-129) H 02/14/22 16:53 Troponin T < 0.010 ng/mL (0.00-0.029) 02/14/22 16:53 NT-Pro-B Natriuret Pep 378.9 pg/mL (0-900) 02/15/22 08:09 Total Protein 9.0 g/dL (6.3-8.2) H 02/14/22 16:53 Albumin 4.4 g/dL (3.9-5) 02/14/22 16:53 Albumin/Globulin Ratio 1.0 % 02/14/22 16:53 SARS-CoV-2 (PCR) Negative (Negative) 02/15/22 10:50 Active Medications - Current Medications Current Medications: Generic Name Dose Route Start Last Admin Trade Name Freq PRN Reason Stop Dose Admin Acetaminophen 650 mg 02/14/22 23:54 Acetaminophen 325 Mg Tab PO Q4H PRN Pain MILD(1-3)/Fever >100.5/TIERNEY Albuterol 2.5 mg 02/14/22 23:54 Albuterol 2.5 Mg/3 Ml Nebu IH Q3HRT PRN Shortness Of Breath Albuterol/Ipratropium 1 ampul 02/15/22 02:00 02/15/22 14:13 Ipratropium/Albuterol Sulfate 3 Ml Ampul.Neb IH 1 ampul Q6HRT JESSEE Administration Atorvastatin Calcium 20 mg 02/15/22 22:00 Atorvastatin 20 Mg Tab PO QHS [facility] Enoxaparin Sodium 40 mg 02/15/22 10:00 02/15/22 09:26 Enoxaparin 40 Mg/0.4 Ml Inj SUB-Q 40 mg DAILY JESSEE Administration Protocol Famotidine 20 mg 02/15/22 10:00 02/15/22 09:27 Famotidine 20 Mg Tab PO 20 mg BID [facility] Administration Hydralazine HCl 10 mg 02/15/22 00:02 Hydralazine 20 Mg/1 Ml Inj IV Q6H PRN Blood Pressure Azithromycin 500 mg in 250 mls @ 250 mls/hr 02/15/22 15:00 Zithromax/Ns IV 02/18/22 15:59 Q24H [facility] Ceftriaxone Sodium 1 gm in 50 mls @ 100 mls/hr 02/15/22 15:00 Rocephin/Ns 1 Gm/50 Ml IV 02/18/22 15:29 Q24H [facility] Protocol Latanoprost 1 drops 02/15/22 22:00 Latanoprost 0.005% Ophth Soln 2.5 Ml OU QHS [facility] Levothyroxine Sodium 25 mcg 02/15/22 06:00 02/15/22 06:07 Levothyroxine 25 Mcg Tab PO 25 mcg QAM@0600 [facility] Administration Losartan Potassium 25 mg 02/15/22 10:00 02/15/22 09:27 Losartan 25 Mg Tab PO 25 mg QDAY [facility] Administration Methylprednisolone Sodium Succinate 60 mg 02/15/22 15:00 Methylprednisolone Sod Succinate 125 Mg/2 Ml Inj IV Q8HR [facility] Morphine Sulfate 2 mg 02/14/22 23:54 Morphine 2 Mg/1 Ml Inj IV Q4H PRN Pain, Moderate (4-6) Morphine Sulfate 4 mg 02/14/22 23:54 Morphine 4 Mg/1 Ml Inj IV Q4H PRN Pain , Severe (7-10) Ondansetron HCl 4 mg 02/14/22 23:54 Ondansetron 4 Mg/2 Ml Inj IV Q8H PRN Nausea And Vomiting Promethazine HCl 25 mg 07/25/22 23:54 Promethazine 25 Mg Rect Supp TX Q6H PRN N/V IF NPO AND NO IV ACCESS Sodium Chloride 10 ml 02/15/22 10:00 Sodium Chloride 0.9% 10 Ml Flush Syringe IV BID JESSEE Sodium Chloride 10 ml 02/14/22 23:54 Sodium Chloride 0.9% 10 Ml Flush Syringe IV PRN PRN LINE FLUSH Sodium Polystyrene Sulfonate 30 gm 02/15/22 14:58 Sodium Polystyrene 15 Gm/60 Ml Oral Liqd PO 02/15/22 14:59 ONCE ONE Tamsulosin HCl 0.4 mg 02/15/22 10:00 02/15/22 09:27 Tamsulosin 0.4 Mg Cap PO 0.4 mg DAILY JESSEE Administration
[2022-02-15] MEDS: methylPREDNISolone Sod Succinate 125 MG/2 ML INJ IV SCH ×2 (16:02→22:52)
[2022-02-15] MEDS ORDERED: LATANOPROST 0.005% OPHTH SOLN 2.5 ML OU SCH (22:00)
[2022-02-16] MEDS: methylPREDNISolone Sod Succinate 125 MG/2 ML INJ IV SCH (06:14)
[2022-02-16] MEDS: LEVOTHYROXINE 25 MCG TAB PO SCH (06:15)
[2022-02-16 08:38] LABS: BUN/Creatinine Ratio 18; Blood Urea Nitrogen 16 mg/dL (9-20); Calcium 9.5 mg/dL (8.4-10.2); Hemolysis Index 11
[2022-02-16] MEDS: FAMOTIDINE 20 MG TAB PO SCH (09:12)
[2022-02-16] MEDS: ENOXAPARIN 40 MG/0.4 ML INJ SUB-Q SCH (09:12)
[2022-02-16] MEDS: TAMSULOSIN 0.4 MG CAP PO SCH (09:12)
[2022-02-16] MEDS: LOSARTAN 25 MG TAB PO SCH (09:12)
[2022-02-16] MEDS ORDERED: AZITHROMYCIN 250 MG TAB PO SCH ×2 (12:00→13:00)
[2022-02-16] MEDS ORDERED: SODIUM POLYSTYRENE 15 GM/60 ML ORAL LIQD PO SCH (13:00)
--- NOTE | 2022-02-16 13:25 | Vascular Lab Report ---
DUPLEX DOPPLER LOWER EXTREMITY VEINS, BILATERAL INDICATION / CLINICAL INFORMATION: Assess for possible DVT. TECHNIQUE: Duplex doppler imaging was performed through the veins of both lower extremities using venous jose l grady and other maneuvers. COMPARISON: None available. FINDINGS: RIGHT COMMON FEMORAL VEIN: Negative. RIGHT FEMORAL VEIN: Negative. RIGHT POPLITEAL VEIN: Negative. RIGHT CALF VEINS: Negative. LEFT COMMON FEMORAL VEIN: Negative. LEFT FEMORAL VEIN: Negative. LEFT POPLITEAL VEIN: Negative. LEFT CALF VEINS: Negative. ADDITIONAL FINDINGS: None. IMPRESSION: 1. No sonographic evidence for DVT in either lower extremity. Signer Name: Pavan Dalton MD Signed: 02/16/2022 1:21 PM Workstation Name: [id number]
[2022-02-16] MEDS ORDERED: DOXYCYCLINE 100 MG CAP PO ONE (15:57)
--- NOTE | 2022-02-16 16:07 | Discharge Summary ---
Providers - Providers Date of Admission: 02/14/22 23:54 Date of discharge: 02/16/22 Attending physician: ZELDA LUGO MD Primary care physician: [facility] [employer] Hospitalization Reason for admission: Acute hypoxic respiratory failure Condition: Stable Pertinent studies: Reviewed. Procedures: None. Hospital course: Patient is a 76-year-old male past medical history of hyperlipidemia, hypertension, hypothyroidism, BPH, CAD complicated by prior stents, and sarcoidosis who presented to the ED with complaints of dyspnea on exertion and orthopnea originating the night prior to presentation that is since worsened. The patient also endorsed having nausea and vomiting but denied any sick contacts, cough, chest pain, fever, chills, bilateral lower extremity swelling, recent travel, or known COVID-19 exposures. Patient described having similar episodes in the past that have resolved quickly. On presentation, patient was found to be hemodynamically stable and mildly tachycardic with a pulse of 102. Patient underwent chest x-ray that was unremarkable. CT angio chest was also unremarkable for pulmonary embolism. Patient had labs that are remarkable for D-dimer of 908 and sodium 147. Patient was admitted for further management of acute hypoxic respiratory failure. Patient underwent TTE (02/15/2022) revealing EF 55% and relatively unremarkable. Patient was also found to be negative for coronavirus. Patient's nausea and vomiting resolved. The patient was started on azithromycin and ceftriaxone for presumed community-acquired pneumonia. Patient's labs are remarkable for worsening hyperkalemia was medically managed. Patient will be discharged on doxycycline 100 mg twice daily to complete a 5-day course of antibiotics. Patient underwent bilateral lower extremity venous Dopplers that were unremarkable for DVT. Patient is medically clear for discharge. Disposition: 01 HOME / SELF CARE / HOMELESS Final Discharge Diagnosis (Prints w/discharge instructions): Acute hypoxic respiratory failure, nausea vomiting, hypertension, hyperlipidemia, hypothyroidism, BPH Time spent for discharge: 45 min Core Measure Documentation - Palliative Care Palliative Care/ Comfort Measures: Not Applicable - Core Measures Any of the following diagnoses?: history only Exam - Constitutional Vitals: Temp Pulse Resp BP Pulse Ox 97.9 F 54 L 18 144/70 100 02/16/22 08:52 02/16/22 09:00 02/16/22 09:00 02/16/22 08:52 02/16/22 09:30 General appearance: Present: no acute distress, well-nourished - EENT Eyes: Present: PERRL, EOM intact ENT: hearing intact, clear oral mucosa, dentition normal - Neck Neck: Present: supple, normal ROM - Respiratory Respiratory effort: normal Respiratory: bilateral: CTA - Cardiovascular Rhythm: regular Heart Sounds: Present: S1 & S2 - Extremities Extremities: no ischemia, pulses intact, pulses symmetrical, No edema, normal temperature, normal color Peripheral Pulses: within normal limits - Abdominal General gastrointestinal: Present: soft, non-tender, non-distended, normal bowel sounds Male genitourinary: Present: deferred - Rectal Rectal Exam: deferred - Integumentary Integumentary: Present: clear, warm, dry - Musculoskeletal Musculoskeletal: strength equal bilaterally - Psychiatric Psychiatric: appropriate mood/affect, intact judgment & insight, memory intact, cooperative - Neurologic Neurologic: CNII-XII intact, moves all extremities - Allied Health Allied health notes reviewed: nursing Plan Activity: no restrictions Diet: low salt Additional Instructions: Patient is a 76-year-old male past medical history of hyperlipidemia, hypertension, hypothyroidism, BPH, CAD complicated by prior stents, and sarcoidosis who presented to the ED with complaints of dyspnea on exertion and orthopnea originating the night prior to presentation that is since worsened. The patient also endorsed having nausea and vomiting but denied any sick contacts, cough, chest pain, fever, chills, bilateral lower extremity swelling, recent travel, or known COVID-19 exposures. Patient described having similar episodes in the past that have resolved quickly. On presentation, patient was found to be hemodynamically stable and mildly tachycardic with a pulse of 102. Patient underwent chest x-ray that was unremarkable. CT angio chest was also unremarkable for pulmonary embolism. Patient had labs that are remarkable for D-dimer of 908 and sodium 147. Patient was admitted for further management of acute hypoxic respiratory failure. Patient underwent TTE () revealing EF 55% and relatively unremarkable. Patient was also found to be negative for coronavirus. Patient's nausea and vomiting resolved. The patient was started on azithromycin and ceftriaxone for presumed community- acquired pneumonia. Patient's labs are remarkable for worsening hyperkalemia was medically managed. Patient will be discharged on doxycycline 100 mg twice daily to complete a 5-day course of antibiotics. Patient underwent bilateral lower extremity venous Dopplers that were unremarkable for DVT. Patient is medically clear for discharge. Care Plan Goals: Patient is medically clear for discharge. Assessment: Patient is a 76-year-old male past medical history of hyperlipidemia, hypertension, hypothyroidism, BPH, CAD complicated by prior stents, and sarcoidosis who presented to the ED with complaints of dyspnea on exertion and orthopnea originating the night prior to presentation that is since worsened. The patient also endorsed having nausea and vomiting but denied any sick contacts, cough, chest pain, fever, chills, bilateral lower extremity swelling, recent travel, or known COVID-19 exposures. Patient described having similar episodes in the past that have resolved quickly. On presentation, patient was found to be hemodynamically stable and mildly tachycardic with a pulse of 102. Patient underwent chest x-ray that was unremarkable. CT angio chest was also unremarkable for pulmonary embolism. Patient had labs that are remarkable for D-dimer of 908 and sodium 147. Patient was admitted for further management of acute hypoxic respiratory failure. Patient underwent TTE (02/15/2022) revealing EF 55% and relatively unremarkable. Patient was also found to be negative for coronavirus. Patient's nausea and vomiting resolved. The patient was started on azithromycin and ceftriaxone for presumed community-acquired pneumonia. Patient's labs are remarkable for worsening hyperkalemia was medically managed. Patient will be discharged on doxycycline 100 mg twice daily to complete a 5-day course of antibiotics. Patient underwent bilateral lower extremity venous Dopplers that were unremarkable for DVT. Patient is medically clear for discharge. Follow up with: PRIMARY CARE, [Primary Care Provider] - 3-5 Days Prescriptions: AtorvaSTATin [Lipitor] 20 mg PO QHS #30 tab Losartan [Cozaar] 25 mg PO QDAY #30 tab Levothyroxine [Synthroid] 25 mcg PO QAM #30 tab Tamsulosin 0.4 mg PO DAILY #30 tab
[2022-02-16 16:39] VITALS: BP 145/74
[2022-02-16 17:57] LABS: BUN/Creatinine Ratio 15; Blood Urea Nitrogen 17 mg/dL (9-20); Calcium 9.7 mg/dL (8.4-10.2); Hemolysis Index 5
== END 2022-02-16 19:42 | disposition home or self-care (01) | DRG 189 ==
LOC: ED 14:01 → CC1 23:54 → 4A 02-15 00:32
PROVIDERS: ADMIT Hospitalist; ATTEND Student in an Organized Health Care Education/Training Program
PROC: 4A033R1 Measurement of Arterial Saturation, Peripheral, Percutaneous Approach (ICD-10-PCS; principal; 2022-02-14)
DX: J96.01 Acute respiratory failure with hypoxia (principal); I10 Essential (primary) hypertension; Z20.822 Contact with and (suspected) exposure to COVID-19; E78.00 Pure hypercholesterolemia, unspecified; E03.9 Hypothyroidism, unspecified; N40.0 Benign prostatic hyperplasia without lower urinary tract symptoms; I25.10 Atherosclerotic heart disease of native coronary artery without angina pectoris; Z79.899 Other long term (current) drug therapy
CPT/HCPCS: 36415; 71045; 71275; 80048; 80053; 82803; 83690; 83880; 84145; 84484; 85025; 85379; 85610; 85730; 93005; 93306; 93970; 94640; 94760; G0378; C8929; J0456; J0696; J1650; J2405; J2930; Q9967; U0003